=== PATIENT | female | born 1955 | race Caucasian/White ===

== ENCOUNTER → 2017-08-07 | Day surgery (SDC) | payer BC ==
[~2017-08-07] VITALS: Ht 167.6 cm; Wt 67.3 kg
[~2017-08-07] MED LIST: ACETAMINOPHEN 500 MG CPLT PO PRN; ATROPINE SULFATE 1% OPHT SOLN 2 ML BTL ONE; BALANCED SALT SOLN OPHT IRRIG 15 ML BTL ONE; CALC1TAB87 PO; CHLORHEXIDINE GLUCONATE 2 % 1 PACK (2 CLOTHS) TOPICAL PRN; CRANCAP2 PO; CYCLOPENTOLATE HCL 1% OPHT SOLN 2 ML BTL ONE; DEXAMETHASONE SOD PHOS 4 MG/ML VIAL ONE; DO NOT ADM ANY ANTICOAGULANT DRUGS PRN; EPINEPHrine HCL (1:1000) 1 MG/ML VIAL ONE; INSULIN HUMAN REGULAR 1,000 UNITS/10 ML VIAL SQ PRN; LACTATED RINGER'S 1000 ML IV PRN; LEVO75TA3 PO; METOPROLOL TARTRATE 25 MG TAB PO PRN; ONDANSETRON HCL 4 MG/2 ML VIAL IV PRN; POVIDONE IODINE 5% (ANTISEPSIS KIT) 4 APPLICATIONS EACH NARE PRN; SODIUM CHLORID 0.9% 500 ML IV PRN; STERILE WATER FOR INJECTION 20 ML VIAL ONE; TOBRAMYCIN/DEXAMETHASONE OPTH OINT 3.5 GM TUBE ONE; TRIAMCINOLONE ACETONIDE/PF 40 MG/ML OPTH VIAL ONE; VITA10002 PO; ceFAZolin INJ 1,000 MG VIAL ONE; oxyCODONE/ACETAMINOPHEN 5 MG/325 MG TAB PO PRN
[2017-08-07] MEDS: TROPICAMIDE 1% OPHT SOLN 15 ML BTL RIGHT EYE SCH ×2 (08:50→09:03)
[2017-08-07] MEDS: PHENYLEPHRINE HCL 2.5% OPTH SOLN 2 ML BTL RIGHT EYE SCH ×2 (08:50→09:03)
[2017-08-07] MEDS: CYCLOPENTOLATE HCL 1% OPHT SOLN 2 ML BTL RIGHT EYE SCH ×2 (08:51→09:04)
[2017-08-07] MEDS: ATROPINE SULFATE 1% OPHT SOLN 5 ML BTL RIGHT EYE SCH ×2 (08:52→09:04)
[2017-08-07 08:53] LABS: AUTOMATED NEUTROPHIL # 2.1 TH/MM3 (1.8-7.7); BASOPHIL % 0.7 % (0.0-2.0); EOSINOPHIL # 0.2 TH/MM3 (0-0.4); EOSINOPHIL % 3.6 % (0.0-4.0); HEMATOCRIT 41.8 % (35.0-46.0); HEMO FLAGS DIFF FINAL; LYMPH % 53.4 % (9.0-44.0); LYMPHOCYTE # 3.4 TH/MM3 (1.0-4.8); MEAN CELL VOLUME 97.5 FL (80.0-100.0); MEAN CORPUSCULAR HEMOGLOBIN 32.2 PG (27.0-34.0); MEAN CORPUSCULAR HGB CONC 33.1 % (32.0-36.0); MONO % 10.3 % (0.0-8.0); PLATELET COUNT 241 TH/MM3 (150-450); RED BLOOD COUNT 4.29 MIL/MM3 (4.00-5.30); RED CELL DISTRIBUTION WIDTH 14.2 % (11.6-17.2); WHITE BLOOD COUNT 6.4 TH/MM3 (4.0-11.0)
--- NOTE | 2017-08-07 11:31 | EKG ---
Date Performed: 08/07/2017 Time Performed: 08:11:57 PTAGE: 61 years EKG: SINUS BRADYCARDIA MARKED LEFT AXIS DEVIATION ABNORMAL ECG Compared to prior tracing no sign ificant change PREVIOUS TRACING : 09/21/2015 09.03 DOCTOR: Cristian Hurd Interpretating Date/Time 08/07/2017 11:28:03
--- NOTE | 2017-08-07 12:49 | MP ---
cc: ANCELMO KERR M.D. DATE OF SURGERY: 08/07/2017 PREOPERATIVE DIAGNOSIS History of complicated retinal detachment right eye with silicone oil. POSTOPERATIVE DIAGNOSIS History of complicated retinal detachment right eye with silicone oil. PROCEDURE Trans pars plana vitrectomy with removal of silicone oil. Endolaser photocoagulation, internal limiting membrane scrape and gas fluid exchange, right eye. SURGEON Dr. Ancelmo Kerr. ANESTHESIA General laryngeal mask anesthesia. HISTORY OF PRESENT ILLNESS Ms. Thomas is a 61-year-old woman with a history of complicated retinal detachment in the past. She has had her retina reattached under silicone oil for approximately 16 months. She wishes to proceed electively with removal of silicone oil. She also has a macular hole and wishes to try and close the hole. The risks and benefits of surgery as well as the possibility of re-detachment and the difficulty of closing a non-idiopathic macular hole were discussed with the patient. She wished to proceed and informed consent was obtained. No guarantee was made as to visual outcome. PROCEDURE She was brought to [facility] operating room one and placed on the operating table. Appropriate anesthesia monitoring devices were applied and she was placed under general anesthesia using a laryngeal mask. The right eye was identified as the operative site and then prepped and draped. A lid speculum was placed. At this point a time-out was called with the surgical team agreeing to the surgical procedure and the surgical site. The microscope was brought around and adjusted. Using the Genaro 23-gauge vitrectomy system the trocar cannulas were placed with the first one being placed at approximately 8:30 o'clock and verified to be in the posterior chamber. Two additional trocar cannulas were placed at approximately 10 and 2 o'clock. A plug was placed in the superonasal cannula and the viscous fluid extractor was attached to the superotemporal cannula and the silicone was removed after which free flow allowed the smaller silicone bubbles to escape. A 30 gauge needle on a TB syringe was used to enter the anterior chamber and removed the emulsified silicone bubbles which were clinging to the endothelium. Next, an attempt was made to create a capsulotomy, however, the capsule was very fibrotic and would not open with the vitrectomy cutter or Juan's pick. I did not want to continue trying to scrape the back of the capsule because the lens would move and I was afraid of breaking zonules, so I left that be, put on a plain contact lens with my membrane scraper, scraped around the macular hole, freeing up its edges somewhat. Endolaser was placed inferiorly, using a power of 250 milliwatts and 0.1-second exposure with 45 treats given. The retina appeared to be attached 360 degrees so an air-fluid exchange was done with the soft tipped linear extrusion needle and then the air was exchanged out for 15% mixture of C3F8 gas. The trocar cannulas were removed one by one and each closed with an interrupted 7-0 Vicryl suture. Atropine drops were placed on the cornea followed by subconjunctival injections of Ancef 125 mg in half cc and Decadron 2 mg in half ccs. The lid speculum was removed and TobraDex ointment was placed on the cornea. The patient was undraped and the right eye was patched and shielded. The patient had the laryngeal mass removed in the room and was returned to recovery in good condition laying on her left side. When awake and alert she will be asked to begin face-down positioning as was discussed preoperatively. MD REDDY Cowan/SHAUNNA /12:08 PM /12:22 PM
[2017-08-07 13:12] VITALS: BP 136/80; PULSE 78; RESP 18; O2SAT 99
== END | disposition home or self-care (01) ==
LOC: HSDC 07:30
PROVIDERS: ATTEND Ophthalmology
DX: H33.21 Serous retinal detachment, right eye (principal); R00.1 Bradycardia, unspecified
CPT/HCPCS: 00145; 67015; 67025; 67039; 67042; 85025; 93005; J0171; J0690; J1100; J7120; J3300

== ENCOUNTER → 2017-09-04 | Day surgery (SDC) | payer BC ==
[~2017-09-04] VITALS: Ht 167.6 cm; Wt 68.1 kg
[~2017-09-04] MED LIST changes: -ACETAMINOPHEN 500 MG CPLT PO PRN; -CYCLOPENTOLATE HCL 1% OPHT SOLN 2 ML BTL ONE; +GLYCOPYRROLATE 1 MG/5 ML SYRINGE IV PUSH ONE; +HYDR25TA5 PO; +IBUP-232 PO; -INSULIN HUMAN REGULAR 1,000 UNITS/10 ML VIAL SQ PRN; +LEVO125T4 PO; +LEVO50TA4 PO; -LEVO75TA3 PO; +LIDOCAINE HCL 1% PF 5 ML SYRINGE OTHER ONE; +MIDAZOLAM HCL 2 MG/2 ML VIAL IV ONE; +MORPHINE SULFATE 4 MG/ML INJ ONE; +ONDANSETRON HCL 4 MG/2 ML VIAL IM PRN; +ONDANSETRON HCL 4 MG/2 ML VIAL IV PUSH ONE; +ONDANSETRON HCL 4 MG/2 ML VIAL ONE; +OXYC-395 PO; +PROPOFOL 200 MG/20 ML AMP IV ONE; +PROZ20CA11 PO; +ePHEDrine/NS 25 MG/5 ML SYR IV ONE; -oxyCODONE/ACETAMINOPHEN 5 MG/325 MG TAB PO PRN
[2017-09-04 08:07] LABS: AUTOMATED NEUTROPHIL # 2.8 TH/MM3 (1.8-7.7); BASOPHIL # 0.1 TH/MM3 (0-0.2); BASOPHIL % 0.8 % (0.0-2.0); EOSINOPHIL # 0.3 TH/MM3 (0-0.4); EOSINOPHIL % 3.6 % (0.0-4.0); HEMATOCRIT 40.3 % (35.0-46.0); HEMO FLAGS DIFF FINAL; LYMPH % 53.6 % (9.0-44.0); LYMPHOCYTE # 4.4 TH/MM3 (1.0-4.8); MEAN CELL VOLUME 97.4 FL (80.0-100.0); MEAN CORPUSCULAR HEMOGLOBIN 32.8 PG (27.0-34.0); MEAN CORPUSCULAR HGB CONC 33.7 % (32.0-36.0); MONO % 8.4 % (0.0-8.0); NEUT % 33.6 % (16.0-70.0); PLATELET COUNT 228 TH/MM3 (150-450); RED BLOOD COUNT 4.14 MIL/MM3 (4.00-5.30); RED CELL DISTRIBUTION WIDTH 14.2 % (11.6-17.2); WHITE BLOOD COUNT 8.3 TH/MM3 (4.0-11.0)
[2017-09-04] MEDS: PHENYLEPHRINE HCL 2.5% OPTH SOLN 2 ML BTL RIGHT EYE SCH ×4 (08:55→09:40)
[2017-09-04] MEDS: ATROPINE SULFATE 1% OPHT SOLN 5 ML BTL RIGHT EYE SCH ×4 (08:55→09:40)
[2017-09-04] MEDS: TROPICAMIDE 1% OPHT SOLN 15 ML BTL RIGHT EYE SCH ×4 (08:55→09:40)
[2017-09-04] MEDS: CYCLOPENTOLATE HCL 1% OPHT SOLN 2 ML BTL RIGHT EYE SCH ×4 (08:55→09:40)
[2017-09-04 13:25] VITALS: BP 168/91; PULSE 65; RESP 16; TEMP 97.6; O2SAT 99
--- NOTE | 2017-09-04 21:59 | MP ---
cc: ANCELMO EDUARDO MD DATE OF SURGERY 09/04/17 PREOPERATIVE DIAGNOSIS Recurrent retinal detachment right eye, history of macular hole right eye. POSTOPERATIVE DIAGNOSIS Recurrent retinal detachment right eye, history of macular hole right eye. PROCEDURE Trans pars plana vitrectomy with internal drainage of subretinal fluid, limited focal endolaser photocoagulation and instillation of 5000 centistoke silicone oil, right eye. SURGEON Dr. Geni Eduardo ANESTHESIA General laryngeal mask anesthesia INDICATIONS Ms. Thomas is a 61-year-old female with a history of complicated retinal detachment in her right eye. She was stable for many months under silicone oil with retinal repair and wished to proceed with silicone oil removal. This was done approximately three weeks ago and, unfortunately, her retina redetached. She is now here for reinstillation of silicone oil using a heavier oil that can be left in almost indefinitely. This was her preference. The risks and benefits of surgery were discussed with the patient. She wished to proceed. Informed consent was obtained and no guarantee was made as to visual outcome. PROCEDURE IN DETAIL She was brought to [facility] operating room one and placed on the operating table. Appropriate anesthesia monitoring devices were applied and she was placed under general anesthesia using laryngeal mask. The right eye was identified as the operative eye and then prepped and draped in the usual sterile fashion. A lid speculum was placed. The microscope was brought around and adjusted. At this time, an appropriate time-out was called with the surgical team agreeing to the surgical site and proposed procedure. Using the Genaro 23-gauge vitrectomy system, the trocar cannulas were placed 3.5 mm posterior to the limbus. The first one was placed at approximately 8:30 o'clock and verified to be in the posterior chamber. An infusion cannula was affixed to it and it was turned on. Two additional trocar cannulas were placed at 10 and 2 o'clock and plugged with scleral plugs. Some emulsified silicone oil was removed from the underside of the cornea using a 30 gauge needle on a TB syringe. Next, the eye was entered with the Endoilluminator light pipe and the soft tipped linear extrusion needle and the subretinal fluid was drained under air with aspiration at the optic nerve head and over the preexisting macular hole. Once the retina was flat, the endolaser probe was used to place a limited number of laser diego in the inferior periphery using a power of 300 milliwatts and 0.1-second exposure. The visualization was difficult. Therefore, that was all that was placed. Next, the superotemporal cannula was removed and that sclerotomy enlarged to allow a 20-gauge infusion cannula to instill 5000 centistoke silicone oil. Prior to closing the sclerotomies, the vitrectomy handpiece was used to create a small iridectomy in the peripheral iris at 6 o'clock. The sclerostomies were closed with the superotemporal one taking two Vicryl sutures, 7-0 Vicryl sutures and each other sclerotomy closed with one interrupted 7-0 Vicryl. Subconjunctival injections of Ancef 125 mg in 0.5 ml and Decadron 2 mg in 0.5 ml were given at separate sites. The lid speculum was removed and the patient was undraped. TobraDex ointment was placed on the cornea and then the right eye was patched and shielded. The patient had the laryngeal mass removed in the room and was returned to recovery in good condition in a head elevated position. She will be seen tomorrow in the office at 11:15 a.m. MD REDDY Cowan/ /12:19 PM /9:47 PM
== END | disposition home or self-care (01) ==
LOC: HSDC 07:29
PROVIDERS: ATTEND Ophthalmology
DX: H33.8 Other retinal detachments (principal)
CPT/HCPCS: 00145; 67039; 85025; C1814; J0171; J0690; J1100; J2250; J2270; J2405; J3010; J7120; J3300